=== PATIENT | male | born 1950 | race Caucasian/White ===

== ENCOUNTER 2023-07-13 01:08 | Emergency (ER) | payer OTHER ==
[~2023-07-13] VITALS: Ht 177.8 cm; Wt 135.6 kg
[2023-07-13] MEDS: KETOROLAC 30MG VIAL (30MG/ML) IM ONE (01:48)
[2023-07-13 02:26] VITALS: BP 131/52; PULSE 78; RESP 14; O2SAT 98
[2023-07-13] MEDS ORDERED: KETO10TA2 PO (02:56)
[2023-07-13] MEDS ORDERED: CYCL7.5T27 PO (02:56)
== END 2023-07-13 03:12 | disposition home or self-care (01) ==
LOC: EDH 01:08
DX: M62.830 Muscle spasm of back (principal); I10 Essential (primary) hypertension; Z90.49 Acquired absence of other specified parts of digestive tract
CPT/HCPCS: 99283; 96372; J1885

== ENCOUNTER 2024-05-11 08:52 | Emergency (ER) | payer OTHER, MEDICARE ==
[~2024-05-11] VITALS: Ht 177.8 cm; Wt 102.1 kg
[~2024-05-11 08:52] MED LIST: CYCL7.5T27 PO; KETO10TA2 PO
--- NOTE | 2024-05-11 09:06 | ERN ---
General Chief Complaint: Constipation Stated Complaint: ABDOMINAL PAIN, CONSTIPATION Time Seen by MD: 08:58 Source: patient History of Present Illness Initial Comments Patient is a 74-year-old male coming in to be evaluated for abdominal pain secondary to constipation. Patient states that he has not been able to defecate completely for about three weeks. He states he was being evaluated by public bath attendant but was unable to get a colonoscopy due to bowel not being cleaned. No nausea no vomiting Allergies: Coded Allergies: No Known Allergies (Unverified Allergy, Unknown, 07/13/23) Home Meds Active Scripts Cyclobenzaprine HCl (Cyclobenzaprine HCl) 7.5 Mg Tablet, 7.5 MG PO DAILYDINNER for 7 Days, #7 TAB Prov:KRYS LYONS 07/13/23 Ketorolac Tromethamine (Ketorolac Tromethamine) 10 Mg Tablet, 10 MG PO BID for 5 Days, #10 TAB Prov:KRYS LYONS 07/13/23 Past Medical History Past Medical History: Hypertension, Other Medical History Other: CLL Past Surgical History: Appendectomy, Cholecystectomy ROS Dictation CONSTITUTIONAL: No chills, no fever, no weakness, no diaphoresis, no malaise. HEAD/FACE: No signs of trauma. EENT: No eye pain, no blurred vision, no tearing, no double vision, no ear p ain, no ear discharge, no nose pain, no nasal congestion, no throat pain, no throat swelling, no mouth pain. RESPIRATORY: No cough, no orthopnea, no SOB, no stridor, no wheezing. CARDIOVASCULAR: No chest pain, no edema, no palpitations, no syncope. GASTROINTESTINAL/ABDOMINAL: abdominal pain, constipation, no diarrhea, no nausea, no vomiting. GENITOURINARY: No abnormal discharge, no dysuria, no frequent urination, no hematuria. No complaints of pain in the genitals. MUSCULOSKELETAL: No back pain, no gout, no joint pain, no joint swelling, no muscle pain, no muscle stiffness, no neck pain. INTEGUMENTARY: No change in color, no change in hair/nails, no dryness, no lesion, no lumps, no rash. NEUROLOGICAL/PSYCH: No anxiety, not depressed, no emotional problem, no headache, no numbness, no pre-existing deficit, no history of seizures, no tremors, no weakness. HEMATOLOGIC/LYMPHATIC: Not anemic, no history of blood clots, no apparent bleeding, no bruising, glands not swollen. All Systems Negative, Except as Noted. Physical Exam Physical Exam Dictation VITAL SIGNS: Reviewed. GENERAL APPEARANCE: Alert, oriented x3, no acute distress, obese. HEAD AND FACE: Non-traumatic. EYES: PERRL, pink conjunctivas, eyelid no trauma, anterior chamber clear. EARS: Pinnas intact and no signs of trauma or erythema. Ear canals clear and no discharge. TMs no erythema. NOSE: No discharge, no bleeding. OROPHARYNX: Mouth normal, teeth no caries, tongue pink. Pharynx clear, no er ythema. Tonsils no exudates, no abscesses noted. Mucous membrane moist. NECK: Supple, non-tender, no thyromegaly, no masses, no JVD, no bruits. BREAST: Deferred. CHEST: No tenderness, no crepitus, no paradoxical movement, no retractions. LUNGS: Clear, well-ventilated, symmetric, no rales, no wheezing, no rhonchi, no stridor, good breath sounds bilaterally. HEART: Regular rate, regular rhythm, no murmur, no gallops. VASCULAR: No peripheral edema. ABDOMEN: Soft, positive bowel sounds, distended, no guarding, generalized abdominal tenderness, no rebound, no masses no hepatomegaly, no splenomegaly, no Jovel's sign, no hernias. RECTAL: Deferred. GENITAL: Deferred. NEUROLOGICAL: Normal speech, gross motor function intact, gross sensory function intact. MUSCULOSKELETAL: Neck nontender, full range of motion, back nontender, full range of motion. EXTREMITIES: Nontender, full range of motion. SKIN: Color pink, dry, no turgor, no rash, no lacerations, no abrasions, no contusions. LYMPHATICS: Deferred. Results Laboratory and Microbiology Lab and Micro Result Laboratory Tests Test 05/11/24 09:26 White Blood Count 13.5 K/uL (4.8-10.8) H Red Blood Count 5.38 MIL/uL (4.50-6.20) Hemoglobin 14.9 g/dL (14.0-18.0) Hematocrit 46.8 % (42-54) Mean Corpuscular Volume 87.0 fL (79-99) Mean Corpuscular Hemoglobin 27.7 pg (27.0-33.0) Mean Corpuscular Hemoglobin Concent 31.8 g/dL (32.0-36.0) L Red Cell Distribution Width 13.8 % (11.0-15.5) Platelet Count 120 K/uL (130-400) L Mean Platelet Volume 11.3 fL (7.5-10.5) H Immature Granulocyte % (Auto) 0.5 % (0-1) Neutrophils (%) (Auto) 43.7 % (40.0-77.0) Lymphocytes (%) (Auto) 49.7 % (21.0-51.0) Monocytes (%) (Auto) 3.9 % (3.0-13.0) Eosinophils (%) (Auto) 1.8 % (0.0-8.0) Basophils (%) (Auto) 0.4 % (0.0-5.0) Neutrophils # (Auto) 5.9 K/uL (1.8-7.7) Lymphocytes # (Auto) 6.7 K/uL (1.0-4.8) H Monocytes # (Auto) 0.5 K/uL (0.1-1.0) Eosinophils # (Auto) 0.24 K/uL (0.00-0.70) Basophils # (Auto) 0.05 K/uL (0.00-0.20) Absolute Immature Granulocyte (auto 0.07 K/uL (0-1) Nucleated Red Blood Cells 0.0 % (0.0-0.19) Sodium Level 139 mmol/L (136-145) Potassium Level 4.6 mmol/L (3.5-5.1) Chloride Level 103 mmol/L (101-111) Carbon Dioxide Level 32 mmol/L (21-32) Blood Urea Nitrogen 21 mg/dL (7-18) H Creatinine 1.3 mg/dL (0.5-1.3) Glomerular Filtration Rate Calc 58 mL/min (>90) Random Glucose 95 mg/dL (70-105) Total Calcium 9.4 mg/dL (8.5-10.1) EKG/XRAY/US/CT/MRI CT Scan Comment [place] [id number] [address] IMAGING REPORT Signed PATIENT: CRYSTAL GONZALES MR#: [id number] : 1950 SEX: M AGE: 74 LOCATION: [facility] ORDER 100 STATUS: REG ER REPORT#: [id number] SERVICE 100 REASON: abd pain ORDERING PHYSICIAN: JENARO SHANKAR MD PROCEDURE: ABD PEL W - CT ABDOMEN/PELVIS W/CONTRAST CT ABDOMEN/PELVIS W/CONTRAST HISTORY: Abdominal pain COMPARISON: None TECHNIQUE: Multiple sequential axial images of the abdomen and pelvis were obtained from the dome of the diaphragm through symphysis pubis. Patient was given 100 cc of Isovue through intravenous route. Oral contrast was not given. FINDINGS: No pleural effusion is seen bilaterally. There is no evidence of parenchymal disease or pulmonary nodule of the visualized lower lungs. Degenerative changes of the thoracolumbar spine are present. The heart is not enlarged. Liver measures 18 cm. Spleen measures 17 cm. Postcholecystectomy changes are seen. Subcentimeter hepatic cysts are seen. Acid distention is seen. There is mild small bowel dilatation with fluid-filled may be related to enterocolitis. There is mild diverticulosis left renal cyst is seen measuring 16 mm posteriorly. Bilateral renal cortical scarring is seen. The liver, spleen, adrenal glands and pancreas are unremarkable. There is no evidence of hydronephrosis bilaterally. No evidence of renal stone is seen. Fecal material is seen in the colon. There are normal size retroperitoneal and mesenteric lymph nodes. No ascites is seen. Atherosclerotic changes are present. Bilateral inguinal hernias are seen with fat content. Pelvic sidewalls are symmetric bilaterally. Bladder is well distended without wall thickening. IMPRESSION: 1. Hepatosplenomegaly. Fecal material in the colon. Mild small bowel dilatation with fluid-filled small bowel loops may be related to enteritis. CT was performed with one or more following dose reduction techniques: automated exposure control, adjustment of the mA and kv according to patient's size, or use of a iterative reconstruction technique. DICTATED BY: TEODORA GRIER MD DATE: 05/11/24 1141 ELECTRONICALLY SIGNED BY: TEODORA GRIER MD DATE: 05/11/24 1146 [facility] MDM: Differential diagnosis: Constipation, small-bowel obstruction, ileus, Patient is a 74-year-old male coming in to be evaluated for constipation. Per patient he was not been able to go for a couple of weeks in his here for further evaluation. He states that every time being with go he was just stone liquid but unable to completely cold. CT did not disclose acute findings. Patient received doses of laxatives and states that he finally went in his feels better. Patient will be discharged in stable condition. ED Course Orders Procedure Category Date Status Time Cbc With Differential LAB 05/11/24 Complete 08:58 Basic Metabolic Panel LAB 05/11/24 Complete 08:58 Magnesium Citrate PHA 05/11/24 Complete (Magnesium Citrate) 09:00 Lactulose 20 Gm/30 Ml PHA 05/11/24 Complete Udcup (Constulose 09:00 Ct Abdomen/Pelvis CT 05/11/24 Resulted W/Contrast 10:04 Iohexol (Omnipaque) PHA 05/11/24 Complete 10:16 Peg 3350/Na PHA 05/11/24 Complete Sulf,Bicarb,Cl/Kcl 12:00 Current Medications Medications (Trade) Dose Ordered Sig/[place] Route PRN Reason Start Time Stop Time Status Last Admin Dose Admin Iohexol (Omnipaque) 35,000 mg STK-MED ONCE IV 05/11/24 10:16 05/11/24 10:16 DC Lactulose (Constulose 20gm/ 30ml Udcup) 20 gm ONCE ONCE PO 05/11/24 09:00 05/11/24 09:04 DC 05/11/24 09:43 Magnesium Citrate (Magnesium Citrate) 296 ml ONCE ONCE PO 05/11/24 09:00 05/11/24 09:04 DC 05/11/24 09:43 Polyethylene Glycol/ Electrolytes (Golytely/Colyte Soln) 4,000 ml ONCE ONCE PO 05/11/24 12:00 05/11/24 12:01 DC 05/11/24 13:20 Vital Signs Date Time Temp Pulse Resp B/P (MAP) Pulse Ox O2 Delivery O2 Flow Rate FiO2 05/11/24 12:35 97.5 58 18 129/79 99 Room Air* 0 21 05/11/24 09:56 98.1 70 18 116/77 99 Room Air* 0 21 05/11/24 08:53 97.9 66 18 115/76 97 Room Air DX & DISP Disposition: Discharge Departure Impression: Primary Impression: Constipation Condition: Stable Additional Instructions: FOLLOW-UP WITH PRIMARY CARE PROVIDER IN 1 TO 2 DAYS. TAKE MEDICATIONS DIRECTED HERE IN THE EMERGENCY ROOM. OKAY TO CONTINUE HOME MEDICATIONS UNLESS OTHERWISE DISCUSSED DURING YOUR VISIT IN THE EMERGENCY ROOM TODAY. RETURN TO YO UR NEAREST EMERGENCY ROOM IF SYMPTOMS WORSEN OR IF THERE IS NO IMPROVEMENT. CALL 911 IF YOU NEED IMMEDIATE ASSISTANCE. TAKE TYLENOL [id number] NEEDED AND IF NO CONTRAINDICATIONS ARE PRESENT. INCREASE ORAL HYDRATION. A WOUND CULTURE OR URINE CULTURE WAS ORDERED HERE IN THE EMERGENCY ROOM DEPARTMENT PLEASE FOLLOW-UP WITH PRIMARY CARE PROVIDER AND ADVISE THEM TO GET REPEAT PORTS FROM OUR FACILITY. IF YOU HAD ANY TORSTEN WRAP/SPLINTS THAT WERE APPLIED HERE, PLEASE DO NOT REMOVE THEM UNTIL YOU SEE YOUR PRIMARY CARE OR SPECIALTY. Referrals: Referrals: CRYSTAL POSADA MD (PCP) Time of Disposition: 15:07 JENARO SHANKAR MD May 11, 2024 09:06
[2024-05-11 09:40] LABS: BASOPHILS # (AUTO) 0.05 K/uL (0.00-0.20); BASOPHILS % (AUTO) 0.4 % (0.0-5.0); EOSINOPHILS # (AUTO) 0.24 K/uL (0.00-0.70); EOSINOPHILS % (AUTO) 1.8 % (0.0-8.0); HEMATOCRIT 46.8 % (42-54); IMMATURE GRANULOCYTE ABSOLUTE 0.07 K/uL (0-1); LYMPHOCYTES # (AUTO) 6.7 K/uL (1.0-4.8); LYMPHOCYTES % (AUTO) 49.7 % (21.0-51.0); MEAN CORPUSCULAR HEMOGLOBIN 27.7 pg (27.0-33.0); MEAN CORPUSCULAR HGB CONC 31.8 g/dL (32.0-36.0); MONOCYTES # (AUTO) 0.5 K/uL (0.1-1.0); MONOCYTES % (AUTO) 3.9 % (3.0-13.0); NEUTROPHILS # (AUTO) 5.9 K/uL (1.8-7.7); NEUTROPHILS % (AUTO) 43.7 % (40.0-77.0); PLATELET COUNT (AUTO) 120 K/uL (130-400); RED BLOOD CELL COUNT(AUTO) 5.38 MIL/uL (4.50-6.20); RED CELL DISTRIBUTION WIDTH 13.8 % (11.0-15.5); WHITE BLOOD COUNT (AUTO) 13.5 K/uL (4.8-10.8)
[2024-05-11] MEDS: MAGNESIUM CITRATE 296 ML SOLUTION PO ONE (09:43)
[2024-05-11] MEDS: LACTULOSE 20 GM/30 ML UDCUP PO ONE (09:43)
[2024-05-11 09:46] LABS: CREATININE 1.3 mg/dL (0.5-1.3); POTASSIUM 4.6 mmol/L (3.5-5.1)
[2024-05-11] MEDS ORDERED: IOHEXOL 350 MG/ML 100ML INFUS..BTL IV ONE (10:16)
--- NOTE | 2024-05-11 11:46 | HMCIMG ---
CT ABDOMEN/PELVIS W/CONTRAST HISTORY: Abdominal pain COMPARISON: None TECHNIQUE: Multiple sequential axial images of the abdomen and pelvis were obtained from the dome of the diaphragm through symphysis pubis. Patient was given 100 cc of Isovue through intravenous route. Oral contrast was not given. FINDINGS: No pleural effusion is seen bilaterally. There is no evidence of parenchymal disease or pulmonary nodule of the visualized lower lungs. Degenerative changes of the thoracolumbar spine are present. The heart is not enlarged. Liver measures 18 cm. Spleen measures 17 cm. Postcholecystectomy changes are seen. Subcentimeter hepatic cysts are seen. Acid distention is seen. There is mild small bowel dilatation with fluid-filled may be related to enterocolitis. There is mild diverticulosis left renal cyst is seen measuring 16 mm posteriorly. Bilateral renal cortical scarring is seen. The liver, spleen, adrenal glands and pancreas are unremarkable. There is no evidence of hydronephrosis bilaterally. No evidence of renal stone is seen. Fecal material is seen in the colon. There are normal size retroperitoneal and mesenteric lymph nodes. No ascites is seen. Atherosclerotic changes are present. Bilateral inguinal hernias are seen with fat content. Pelvic sidewalls are symmetric bilaterally. Bladder is well distended without wall thickening. IMPRESSION: 1. Hepatosplenomegaly. Fecal material in the colon. Mild small bowel dilatation with fluid-filled small bowel loops may be related to enteritis. CT was performed with one or more following dose reduction techniques: automated exposure control, adjustment of the mA and kv according to patient's size, or use of a iterative reconstruction technique.
[2024-05-11] MEDS: PEG 3350/NA SULF,BICARB,CL/KCL 4000 ML SOLN PO ONE (13:20)
--- NOTE | 2024-05-11 16:11 | NUR ---
PT FINISHED THE ORDERED GOLYETELY. HE ALREADY HAD BMx3.
[2024-05-11 16:13] VITALS: BP 125/80; PULSE 60; RESP 18; TEMP 97.6; O2SAT 98
== END 2024-05-11 16:30 | disposition home or self-care (01) ==
LOC: EDH 08:52
DX: K59.00 Constipation, unspecified (principal); I10 Essential (primary) hypertension; Z90.49 Acquired absence of other specified parts of digestive tract
CPT/HCPCS: 99285; 74177; 80048; 85025; 36415; Q9967